=== PATIENT | female | born 1935 | race Caucasian/White ===

== ENCOUNTER 2017-11-07 07:43 | Inpatient (IN) | payer OTHER, MEDICARE ==
[2017-11-07 08:15] LABS: ADD MAN DIFF? NO
[2017-11-07 08:21] LABS: BASOPHILS % 0.3 % (0.0-2.0); EOSINOPHILS # 0.1 10^3/ul (0.0-0.5); EOSINOPHILS % 1.1 % (0.0-7.0); HEMATOCRIT 42.6 % (37.0-47.0); HEMOGLOBIN 14.2 g/dl (12.0-16.0); LYMPHOCYTES # 1.1 10^3/ul (0.8-2.9); LYMPHOCYTES % 13.1 % (15.0-51.0); MEAN CORPUSCULAR HGB CONC 33.3 g/dl (32.0-37.0); MEAN CORPUSCULAR VOLUME 83.9 fl (82.0-101.0); MEAN PLATELET VOLUME 9.4 fl (7.4-10.4); MONOCYTE # 0.6 10^3/ul (0.3-0.9); MONOCYTES % 7.4 % (0.0-11.0); NEUTROPHIL # 6.2 10^3/ul (1.6-7.5); NEUTROPHILS % 77.6 % (39.0-77.0); PLATELET COUNT 312 10^3/UL (140-415); RED BLOOD COUNT 5.08 10^6/ul (4.20-5.40); RED CELL DISTRIBUTION WIDTH 13.4 % (11.5-14.5)
[2017-11-07] MEDS: SOD CHLORIDE 0.9% 500 ML IV (08:27)
[2017-11-07] MEDS: MAGNESIUM SULFATE 1 GM/D5W 100 ML IVPB (08:27)
[2017-11-07 08:39] LABS: ALANINE AMINOTRANSFERASE 49 IU/L (13-69); ALBUMIN/GLOBULIN RATIO 1.21; ALKALINE PHOSPHATASE 125 IU/L (42-121); ANION GAP 18 (8-16); ASPARTATE AMINO TRANSFERASE 29 IU/L (15-46); BILIRUBIN,INDIRECT 1.2 mg/dl (0-1.1); BILIRUBIN,TOTAL 1.2 mg/dl (0.2-1.3); BLOOD UREA NITROGEN 13 mg/dl (7-20); CALCIUM 8.5 mg/dl (8.4-10.2); CARBON DIOXIDE 25 mmol/L (21-31); CHLORIDE 105 mmol/L (97-110); CREATININE 0.91 mg/dl (0.44-1.00); GLUCOSE 108 mg/dl (70-220); LIPASE 76 U/L (23-300); POTASSIUM 3.7 mmol/L (3.5-5.1); SODIUM 144 mmol/L (135-144); TOTAL PROTEIN 7.3 g/dl (6.1-8.1)
[2017-11-07 08:50] LABS: B-TYPE NATRIURETIC PEPTIDE 1420 PG/ML (0-450)
[2017-11-07 08:51] LABS: TROPONIN-I < 0.012 ng/ml (0.00-0.12)
[2017-11-07 09:05] LABS: INR 1.83; PROTIME 21.6 Sec (11.9-14.9); PT RATIO 1.7
[2017-11-07] MEDS: DILTIAZEM 25 MG INJ IV ×2 (09:23→17:12)
[2017-11-07] MEDS ORDERED: NACL 0.9% 3 ML SYG IV (10:00)
[2017-11-07] MEDS ORDERED: ONDANSETRON 4 MG INJ IV (10:00)
[2017-11-07] MEDS ORDERED: HYDROCODONE/APAP (5/325) TAB PO (10:00)
[2017-11-07] MEDS ORDERED: ACETAMINOPHEN 325 MG TAB PO (10:00)
[2017-11-07] MEDS: DIGOXIN 500 MCG INJ IV (10:32)
[2017-11-07 11:55] LABS: FREE T4 (FREE THYROXINE) 1.91 ng/dl (0.85-1.93)
[2017-11-07 17:03] LABS: CREATINE KINASE 49 IU/L (23-200)
[2017-11-07] MEDS: SOD CHLORIDE 0.9% 1,000 ML IV (17:04)
[2017-11-07 17:15] LABS: CK INDEX 1.7; CK-MB 0.84 ng/ml (0.0-2.4)
[2017-11-07 17:17] LABS: TROPONIN-I < 0.012 ng/ml (0.00-0.12)
[2017-11-07] MEDS: WARFARIN 1 MG TAB PO (17:55)
[2017-11-07] MEDS: DRONEDARONE HYDROCHLORIDE 400 MG TAB PO (20:52)
[2017-11-07] MEDS: ATORVASTATIN 20 MG TAB PO (20:52)
[2017-11-07 22:34] LABS: ADD UMIC YES; UR ASCORBIC ACID 20 mg/dL (NEGATIVE); UR BILIRUBIN (Dip) NEGATIVE (NEGATIVE); UR BLOOD (Dip) NEGATIVE (NEGATIVE); UR CLARITY SLIGHTLY CLOUDY (CLEAR); UR COLOR YELLOW (YELLOW); UR GLUCOSE (Dip) NEGATIVE (NEGATIVE); UR KETONES (Dip) TRACE mg/dL (NEGATIVE); UR LEUKOCYTE ESTERASE (Dip) TRACE Leu/ul (NEGATIVE); UR MUCUS FEW /HPF (NONE SEEN); UR NITRITE (Dip) NEGATIVE (NEGATIVE); UR RBC 2 /HPF (0-5); UR SPECIFIC GRAVITY (Dip) 1.017 (1.003-1.030); UR SQUAMOUS EPITHELIAL CELL FEW /HPF (FEW); UR TOTAL PROTEIN (Dip) NEGATIVE (NEGATIVE); UR UROBILINOGEN (Dip) NEGATIVE (NEGATIVE); UR WBC 5 /HPF (0-5)
[2017-11-07 23:00] LABS: CREATINE KINASE 403 IU/L (23-200)
[2017-11-07 23:14] LABS: CK INDEX 1.9; CK-MB 7.47 ng/ml (0.0-2.4); TROPONIN-I < 0.012 ng/ml (0.00-0.12)
[2017-11-07] MEDS: ZOLPIDEM 5 MG TAB PO (23:56)
[2017-11-08] MEDS: DILTIAZEM 25 MG INJ IV ×2 (03:37→04:41)
[2017-11-08] MEDS: SOD CHLORIDE 0.9% 250 ML IV (06:33)
[2017-11-08 07:39] LABS: ADD MAN DIFF? NO
[2017-11-08 07:47] LABS: WHITE BLOOD COUNT 7.1 10^3/ul (4.8-10.8)
[2017-11-08 07:47] LABS: BASOPHILS % 0.3 % (0.0-2.0); EOSINOPHILS # 0.1 10^3/ul (0.0-0.5); EOSINOPHILS % 1.1 % (0.0-7.0); HEMOGLOBIN 12.9 g/dl (12.0-16.0); LYMPHOCYTES # 1.5 10^3/ul (0.8-2.9); LYMPHOCYTES % 21.5 % (15.0-51.0); MEAN CORPUSCULAR HEMOGLOBIN 28.4 pg (29.0-33.0); MEAN CORPUSCULAR HGB CONC 33.1 g/dl (32.0-37.0); MEAN CORPUSCULAR VOLUME 85.9 fl (82.0-101.0); MEAN PLATELET VOLUME 9.9 fl (7.4-10.4); MONOCYTE # 0.6 10^3/ul (0.3-0.9); MONOCYTES % 9.1 % (0.0-11.0); NEUTROPHIL # 4.8 10^3/ul (1.6-7.5); NEUTROPHILS % 67.4 % (39.0-77.0); PLATELET COUNT 313 10^3/UL (140-415); RED BLOOD COUNT 4.54 10^6/ul (4.20-5.40); RED CELL DISTRIBUTION WIDTH 13.9 % (11.5-14.5)
[2017-11-08 08:15] LABS: CHOL/HDL RATIO 2.3 RATIO; HDL CHOLESTEROL 41 mg/dl (33-92); LDL CHOLESTEROL,CALCULATED 40 mg/dl; TRIGLYCERIDES 71 mg/dl (0-149)
[2017-11-08 08:15] LABS: CHOLESTEROL 95 mg/dl (100-200)
[2017-11-08] MEDS: FUROSEMIDE 20 MG TAB PO (08:18)
[2017-11-08] MEDS: DRONEDARONE HYDROCHLORIDE 400 MG TAB PO (08:18)
[2017-11-08] MEDS: LEVOTHYROXINE 100 MCG TAB PO (08:18)
[2017-11-08 08:27] LABS: ALANINE AMINOTRANSFERASE 40 IU/L (13-69); ALKALINE PHOSPHATASE 94 IU/L (42-121); ANION GAP 12 (8-16); ASPARTATE AMINO TRANSFERASE 30 IU/L (15-46); BILIRUBIN,INDIRECT 0.6 mg/dl (0-1.1); BILIRUBIN,TOTAL 0.6 mg/dl (0.2-1.3); BLOOD UREA NITROGEN 12 mg/dl (7-20); CARBON DIOXIDE 25 mmol/L (21-31); CHLORIDE 107 mmol/L (97-110); GLUCOSE 88 mg/dl (70-220); POTASSIUM 3.2 mmol/L (3.5-5.1); SODIUM 141 mmol/L (135-144); TOTAL PROTEIN 6.3 g/dl (6.1-8.1)
[2017-11-08 08:38] LABS: INR 2.32; PROTIME 26.1 Sec (11.9-14.9)
[2017-11-08] MEDS: POTASSIUM CHLORIDE 20 MEQ POWDER FOR ORAL SOLN PO (09:53)
[2017-11-08] MEDS: DIGOXIN 500 MCG INJ IV (10:00)
[2017-11-08] MEDS: MAGNESIUM OXIDE 400 MG TAB PO (12:22)
[2017-11-08] MEDS: WARFARIN 3 MG TAB PO (16:50)
[2017-11-08] MEDS: LACTOBACILLUS RHAMNOSUS CAP PO (21:54)
[2017-11-08] MEDS: ATORVASTATIN 20 MG TAB PO (21:54)
[2017-11-08] MEDS: AMIODARONE 200 MG TAB PO (21:54)
[2017-11-08] MEDS: ZOLPIDEM 5 MG TAB PO (22:02)
[2017-11-09] MEDS: DILTIAZEM 25 MG INJ IV ×2 (00:37→01:40)
[2017-11-09] MEDS: DILTIAZEM-D5W 125MG/125ML DRIP 125 ML IV (04:00)
[2017-11-09] MEDS: LEVOTHYROXINE 100 MCG TAB PO (06:50)
[2017-11-09 08:02] LABS: ADD MAN DIFF? NO
[2017-11-09 08:04] LABS: WHITE BLOOD COUNT 6.9 10^3/ul (4.8-10.8)
[2017-11-09 08:05] LABS: BASOPHILS % 0.3 % (0.0-2.0); EOSINOPHILS # 0.1 10^3/ul (0.0-0.5); HEMATOCRIT 38.8 % (37.0-47.0); HEMOGLOBIN 12.5 g/dl (12.0-16.0); LYMPHOCYTES # 1.4 10^3/ul (0.8-2.9); MEAN CORPUSCULAR HGB CONC 32.2 g/dl (32.0-37.0); MEAN CORPUSCULAR VOLUME 86.8 fl (82.0-101.0); MEAN PLATELET VOLUME 9.4 fl (7.4-10.4); MONOCYTE # 0.6 10^3/ul (0.3-0.9); MONOCYTES % 8.8 % (0.0-11.0); NEUTROPHIL # 4.7 10^3/ul (1.6-7.5); NEUTROPHILS % 68.6 % (39.0-77.0); PLATELET COUNT 318 10^3/UL (140-415); RED BLOOD COUNT 4.47 10^6/ul (4.20-5.40); RED CELL DISTRIBUTION WIDTH 13.8 % (11.5-14.5)
[2017-11-09] MEDS: AMIODARONE 200 MG TAB PO (08:20)
[2017-11-09] MEDS: LACTOBACILLUS RHAMNOSUS CAP PO (08:20)
[2017-11-09] MEDS: FUROSEMIDE 20 MG TAB PO ×2 (08:20→08:24)
[2017-11-09 08:24] LABS: ANION GAP 12 (8-16); BLOOD UREA NITROGEN 9 mg/dl (7-20); CARBON DIOXIDE 24 mmol/L (21-31); CHLORIDE 109 mmol/L (97-110); CREATININE 0.83 mg/dl (0.44-1.00); GLUCOSE 89 mg/dl (70-220); POTASSIUM 4.2 mmol/L (3.5-5.1); SODIUM 141 mmol/L (135-144)
[2017-11-09] MEDS: DILTIAZEM (CD) 120 MG CAP PO (11:51)
[2017-11-09] MEDS: DIGOXIN 0.125 MG TAB PO (12:33)
[2017-11-09] MEDS: WARFARIN 3 MG TAB PO (16:43)
== END 2017-11-09 17:35 | disposition home or self-care (01) | DRG 309 ==
LOC: E/R 07:43 → TEL 22:22
DX: I48.0 Paroxysmal atrial fibrillation (principal); K52.1 Toxic gastroenteritis and colitis; E03.9 Hypothyroidism, unspecified; E78.5 Hyperlipidemia, unspecified; E87.6 Hypokalemia; T47.4X5A Adverse effect of other laxatives, initial encounter; Z86.19 Personal history of other infectious and parasitic diseases
CPT/HCPCS: 36415; 71045; 80048; 80053; 80061; 81001; 82550; 82553; 83690; 83735; 83880; 84439; 84443; 84484; 85025; 85610; 87086; 87400; 93005; 96374; 96375; 99291-25

== ENCOUNTER 2017-11-15 12:16 | Emergency (ER) | payer OTHER ==
[2017-11-15] MEDS: SOD CHLORIDE 0.9% 1,000 ML IV (17:52)
[2017-11-15 17:55] LABS: ADD MAN DIFF? NO
[2017-11-15 17:58] LABS: WHITE BLOOD COUNT 7.1 10^3/ul (4.8-10.8)
[2017-11-15 17:58] LABS: BASOPHILS % 0.4 % (0.0-2.0); EOSINOPHILS # 0.1 10^3/ul (0.0-0.5); HEMATOCRIT 43.6 % (37.0-47.0); HEMOGLOBIN 14.4 g/dl (12.0-16.0); LYMPHOCYTES # 1.5 10^3/ul (0.8-2.9); LYMPHOCYTES % 20.6 % (15.0-51.0); MEAN CORPUSCULAR HEMOGLOBIN 28.4 pg (29.0-33.0); MEAN PLATELET VOLUME 9.4 fl (7.4-10.4); MONOCYTE # 0.5 10^3/ul (0.3-0.9); MONOCYTES % 6.6 % (0.0-11.0); NEUTROPHIL # 5.1 10^3/ul (1.6-7.5); PLATELET COUNT 378 10^3/UL (140-415); RED BLOOD COUNT 5.07 10^6/ul (4.20-5.40); RED CELL DISTRIBUTION WIDTH 14.1 % (11.5-14.5)
[2017-11-15 18:11] LABS: ADD UMIC YES; UR ASCORBIC ACID 40 mg/dL (NEGATIVE); UR BILIRUBIN (Dip) NEGATIVE (NEGATIVE); UR BLOOD (Dip) NEGATIVE (NEGATIVE); UR CLARITY SLIGHTLY CLOUDY (CLEAR); UR COLOR YELLOW (YELLOW); UR GLUCOSE (Dip) NEGATIVE (NEGATIVE); UR KETONES (Dip) NEGATIVE (NEGATIVE); UR LEUKOCYTE ESTERASE (Dip) 3+ Leu/ul (NEGATIVE); UR NITRITE (Dip) NEGATIVE (NEGATIVE); UR RBC 1 /HPF (0-5); UR SPECIFIC GRAVITY (Dip) 1.019 (1.003-1.030); UR SQUAMOUS EPITHELIAL CELL FEW /HPF (FEW); UR TOTAL PROTEIN (Dip) NEGATIVE (NEGATIVE); UR UROBILINOGEN (Dip) NEGATIVE (NEGATIVE); UR WBC 23 /HPF (0-5)
[2017-11-15 18:18] LABS: INR 2.41; PROTIME 26.9 Sec (11.9-14.9); PT RATIO 2.1
[2017-11-15 18:20] LABS: ALANINE AMINOTRANSFERASE 41 IU/L (13-69); ALBUMIN/GLOBULIN RATIO 1.33; ALKALINE PHOSPHATASE 123 IU/L (42-121); ANION GAP 15 (8-16); ASPARTATE AMINO TRANSFERASE 32 IU/L (15-46); BILIRUBIN,INDIRECT 0.4 mg/dl (0-1.1); BILIRUBIN,TOTAL 0.4 mg/dl (0.2-1.3); BLOOD UREA NITROGEN 18 mg/dl (7-20); CARBON DIOXIDE 25 mmol/L (21-31); CHLORIDE 106 mmol/L (97-110); CREATININE 1.07 mg/dl (0.44-1.00); GLUCOSE 122 mg/dl (70-220); LIPASE 82 U/L (23-300); POTASSIUM 4.4 mmol/L (3.5-5.1); SODIUM 142 mmol/L (135-144)
[2017-11-15 18:31] LABS: TROPONIN-I 0.015 ng/ml (0.00-0.12)
[2017-11-15 18:50] LABS: B-TYPE NATRIURETIC PEPTIDE 940 PG/ML (0-450)
[2017-11-15] MEDS: CEFTRIAXONE 1 GM/50 ML (PMX) 50 ML IVPB (19:26)
== END 2017-11-15 20:08 | disposition home or self-care (01) ==
LOC: E/R 12:16
DX: I48.3 Typical atrial flutter (principal); N39.0 Urinary tract infection, site not specified; I10 Essential (primary) hypertension; E03.9 Hypothyroidism, unspecified; I50.9 Heart failure, unspecified; Z87.891 Personal history of nicotine dependence; Z79.01 Long term (current) use of anticoagulants
CPT/HCPCS: 36415; 71045; 80053; 81001; 83690; 83880; 84484; 85025; 85610; 93005; 93970; 96374; 99285-25